=== PATIENT | male | born 1950 | race Caucasian/White ===

== ENCOUNTER 2020-02-10 07:36 | Day surgery (SDC) | payer OTHER ==
[~2020-02-10] VITALS: Ht 180.3 cm; Wt 100.2 kg
[~2020-02-10 07:36] MED LIST: FLOMAX0.4 MG PO; LIPITOR20 MG PO; OMEPRAZOLE20 MG PO; PAPAYA ENZYME1 EACH PO; VITAMIN D31250 MCG PO
[2020-02-10] MEDS ORDERED: FLONASE ALLERG9.9 ML (07:52)
[2020-02-10] MEDS ORDERED: NITROSTAT0.4 MG SL (07:53)
[2020-02-10] MEDS ORDERED: MECLIZINE HCL25 MG PO (07:53)
[2020-02-10] MEDS ORDERED: CHILDREN'S ASPI81 M1 PO (07:54)
--- NOTE | 2020-02-11 06:21 | OR ---
[facility] [address], [place] [address] Signed DATE OF OPERATION: 02/10/2020 SURGEON: Kristine White MD PREOPERATIVE DIAGNOSES: 1. Personal history of hyperplastic colonic polyps in 2008 at age 58. 2. Change in bowel habits with constipation and decreased frequency of bowel movements every 2-3 days. POSTOPERATIVE DIAGNOSES: 1. Minimal sigmoid diverticulosis. 2. Tortuous sigmoid colon. 3. Internal anal skin tag x1. 4. Swollen, indurated prostate gland. PROCEDURE: Colonoscopy without biopsy. ESTIMATED BLOOD LOSS: None. INDICATIONS: Edgardo is a 69-year-old gentleman who had a colonoscopy back in 2008 at age 58. He had hyperplastic polyps removed at that time. There is no family history of colon cancer or polyps. He feels like he has had a change in bowel habits. He said he is only having bowel movements every 2 or 3 days. Consequently, he was asked to see me for a followup colonoscopy. I gave him a pamphlet on colonoscopy and we looked at that together along with the risks including, but not limited to gas bloating, crampy abdominal pain, bleeding, perforation requiring surgery, and missed diagnosis. We also discussed the need for IV conscious sedation, he had expressed understanding and wished to proceed. DESCRIPTION OF PROCEDURE: Edgardo was taken into our endoscopy suite and placed in the left lateral decubitus position. He was given 5 mg of Versed and 100 mcg of fentanyl to cover the case. A digital rectal exam was performed and he does have a swollen indurated prostate. The left was more prominent than the right. The adult colonoscope was introduced and advanced all around into the cecum under direct visualization of camera. It took some extra sedation and abdominal compression in order to get the camera through the sigmoid colon. His prep was good. We could easily see the appendiceal orifice and the ileocecal valve. The scope was slowly withdrawn. We took pictures throughout for Electronically Signed By: KRISTINE WHITE MD 02/11/20 0621 PATIENT NAME: EDGARDO LYONS OPERATIVE REPORT DATE OF : 50 REPORT #: [id number] PHYSICIAN: KRISTINE WHITE MD PCP: RICHELLE BHAT MD REPORT IS CONFIDENTIAL AND NOT TO BE RELEASED WITHOUT AUTHORIZATION [facility] [address] [place] [id number] Signed photodocumentation. He had no polyps in the colon or rectum. He did have diverticula in the sigmoid colon. Somewhat narrow and tortuous in the sigmoid colon. Upon retroflexion of scope in the rectum, he had just a single internal anal skin tag. After this, the gas was suctioned out and the colonoscope removed. Edgardo tolerated the procedure quite well. RECOMMENDATIONS: Edgardo might consider adding fiber to his daily regimen. Otherwise, he can follow up in 10 years for a repeat colonoscopy based on his hyperplastic polyps. Kristine White MD ALB/MODL /[id number] cc: MD Kristine Finnegan MD Copies: VIKTORIYA ROCHA MD, ANDREW L MD ~ Electronically Signed By: KRISTINE WHITE MD 02/11/20 0621 PATIENT NAME: EDGARDO LYONS OPERATIVE REPORT DATE OF : 50 REPORT #: [id number] PHYSICIAN: KRISTINE WHITE MD PCP: RICHELLE BHAT MD REPORT IS CONFIDENTIAL AND NOT TO BE RELEASED WITHOUT AUTHORIZATION
== END 2020-02-10 10:05 | disposition home or self-care (01) ==
LOC: DS 07:36 → OPS 07:36 → DS 09:00 → OPS 10:05
PROVIDERS: Colon & Rectal Surgery
PROC: 0DJD8ZZ Inspection of Lower Intestinal Tract, Via Natural or Artificial Opening Endoscopic (ICD-10-PCS; principal; 2020-02-10 09:00)
DX: K64.8 Other hemorrhoids (principal); K57.30 Diverticulosis of large intestine without perforation or abscess without bleeding; K63.89 Other specified diseases of intestine; R59.0 Localized enlarged lymph nodes; I25.10 Atherosclerotic heart disease of native coronary artery without angina pectoris; K21.9 Gastro-esophageal reflux disease without esophagitis; N40.0 Benign prostatic hyperplasia without lower urinary tract symptoms; Z86.010 Personal history of colon polyps; Z79.899 Other long term (current) drug therapy
CPT/HCPCS: 99153; G0500; J2250; J3010; J7121